=== PATIENT | female | born 1965 | race Caucasian/White ===

== ENCOUNTER 2018-08-03 23:37 | Emergency (ER) | payer SELFPAY ==
--- NOTE | 2018-08-04 00:17 | ER Document Report ---
ED General - General Chief Complaint: Possible Overdose Stated Complaint: POSSIBLE OVERDOSE Time Seen by Provider: 08/03/18 23:58 Notes: Patient is a 52-year-old female with a past medical history of polysubstance abuse who presents today after ingesting 60 mg of oxycodone as well as several milligrams of Xanax. She apparently lost consciousness in front of family who noted that she was almost not breathing. Narcan was administered on scene and patient has returned to a normal mental status since that time. The patient states that she took this oxycodone because she was trying to get rid of dental and chronic low back pain. States that she used to be on chronic pain management with opiates and had forgotten that her sensitivity has lessened since being off of these medications on a daily basis. She denies any component of avelino's activities were a suicide attempt or trying to harm herself. She denies any current symptoms, states she feels well and would like to go home. She has required Narcan reversal once in the past. TRAVEL OUTSIDE OF THE [place] IN LAST 30 DAYS: No - HPI Onset: Just prior to arrival Onset/Duration: Sudden Quality of pain: No pain Severity: None Pain Level: Denies Associated symptoms: None Exacerbated by: Denies Relieved by: Denies Similar symptoms previously: Yes Recently seen / treated by doctor: No - Related Data Allergies/Adverse Reactions: pregabalin [From Lyrica] Allergy (Severe, Verified 05/13/13 09:01) tramadol HCl [From Ultram] Allergy (Severe, Verified 05/13/13 09:01) ketorolac tromethamine [From Toradol] Allergy (Mild, Verified 07/23/13 09:37) Past Medical History - General Information source: Patient - Social History Smoking Status: Current Every Day Smoker Frequency of alcohol use: None Drug Abuse: Cocaine, Marijuana, Prescription drugs Lives with: Family Family History: Reviewed & Not Pertinent - Past Medical History Cardiac Medical History: Reports: Hx Hypercholesterolemia, Hx Hypertension Pulmonary Medical History: Reports: Hx Asthma Denies: Hx Tuberculosis Endocrine Medical History: Reports: Hx Graves' Disease Renal/ Medical History: Reports: Hx Kidney Stones - seeing Dr. Benito 2.5 yrs ago, Hx Ovarian Cysts Psychiatric Medical History: Reports: Hx Bipolar Disorder, Hx Depression Past Surgical History: Denies: Hx Pacemaker - Immunizations Hx Diphtheria, Pertussis, Tetanus Vaccination: Yes Review of Systems - Review of Systems Notes: Constitutional: Negative for fever. HENT: Negative for sore throat. Eyes: Negative for visual changes. Cardiovascular: Negative for chest pain. Respiratory: Negative for shortness of breath. Gastrointestinal: Negative for abdominal pain, vomiting or diarrhea. Genitourinary: Negative for dysuria. Musculoskeletal: Negative for back pain. Skin: Negative for rash. Neurological: Negative for headaches, weakness or numbness. 10 point ROS negative except as marked above and in HPI. Physical Exam - Vital signs Vitals: Resp BP Pulse Ox 9 L 147/105 H 100 08/03/18 23:41 08/03/18 23:41 08/03/18 23:41 Interpretation: Hypertensive Notes: PHYSICAL EXAMINATION: GENERAL: Well-appearing, well-nourished and in no acute distress. HEAD: Atraumatic, normocephalic. EYES: Pupils equal round and reactive to light, extraocular movements intact, sclera anicteric, conjunctiva are normal. ENT: nares patent, oropharynx clear without exudates. Moist mucous membranes. NECK: Normal range of motion, supple without lymphadenopathy LUNGS: Breath sounds clear to auscultation bilaterally and equal. No wheezes rales or rhonchi. HEART: Regular rate and rhythm without murmurs ABDOMEN: Soft, nontender, normoactive bowel sounds. No guarding, no rebound. No masses appreciated. EXTREMITIES: Normal range of motion, no pitting or edema. No cyanosis. NEUROLOGICAL: No focal neurological deficits. Moves all extremities spontaneously and on command. PSYCH: Normal mood, normal affect. SKIN: Warm, Dry, normal turgor, no rashes or lesions noted. Course - Re-evaluation Re-evalutation: 08/04/18 00:16 Patient presents after an acute opiate overdose, reversed in the field by EMS with naloxone. Patient presents nontoxic in appearance, in no distress, admits to ongoing opiate abuse. I had an extensive conversation with the patient about the dangers opiate abuse, have emphasized that they are never going to be certain what they are self administering particularly given the high rates of fentanyl in our community. Rehab resources have been offered. No indication for labs or imaging. Patient has remained awake, alert, oriented without any evidence of somnolence, hypoventilation or bradycardia to suggest ongoing opiate intoxication that would warrant further observation. At this time will discharge with return precautions and follow-up recommendations. Verbal discharge instructions given a the bedside and opportunity for questions given. Medication warnings reviewed. Patient is in agreement with this plan and has verbalized understanding of return precautions and the need for primary care follow-up in the next 24-72 hours. - Vital Signs Vital signs: Temp Pulse Resp BP Pulse Ox 97.7 F 95 13 136/100 H 96 08/03/18 23:49 08/03/18 23:49 08/04/18 03:01 08/04/18 03:01 08/04/18 03:01 - EKG Interpretation by Me Additional EKG results interpreted by me: 08/04/18 03:48 Sinus rhythm. Rate 90. No ST elevations or depressions. QTC is 470. Discharge - Discharge Clinical Impression: Opiate overdose Qualifiers: Encounter type: initial encounter Injury intent: accidental or unintentional Qualified Code(s): T40.601A - Poisoning by unspecified narcotics, accidental ( unintentional), initial encounter Chronic pain Qualifiers: Chronic pain type: other chronic pain Qualified Code(s): G89.29 - Other chronic pain Condition: Good Disposition: HOME, SELF-CARE Additional Instructions: You were seen today for an opiate overdose. Please never use opiates of any kind. Over 200 people every day in the [place] from opiate overdoses. Do not become a statistic. You should urgently seek rehab or a similar resource. You can call 1-078-773-HELP to find local resources. Return if you have any symptoms that are concerning to you including difficulty breathing, fever, persistent vomiting, or any other symptoms that are concerning to you.
[2018-08-04 04:26] VITALS: BP 125/95
--- NOTE | 2018-08-04 07:44 | EKG REPORT ---
SEVERITY:- OTHERWISE NORMAL ECG - SINUS RHYTHM BORDERLINE LEFT AXIS DEVIATION : Confirmed by: Larissa Zambrano MD 04-Aug-2018 07:43:38
== END 2018-08-04 04:26 | disposition home or self-care (01) ==
LOC: ER 23:37
DX: T40.2X1A Poisoning by other opioids, accidental (unintentional), initial encounter (principal); T42.4X1A Poisoning by benzodiazepines, accidental (unintentional), initial encounter; Y92.009 Unspecified place in unspecified non-institutional (private) residence as the place of occurrence of the external cause; G89.29 Other chronic pain; F17.200 Nicotine dependence, unspecified, uncomplicated; E78.00 Pure hypercholesterolemia, unspecified; I10 Essential (primary) hypertension; Z87.442 Personal history of urinary calculi
CPT/HCPCS: 93005; 93010; 99284